=== PATIENT | female | born 1955 | race Caucasian/White ===

== ENCOUNTER → 2016-11-25 | Outpatient (CLI) | payer BC ==
[~2016-11-25] VITALS: Ht 170.2 cm; Wt 119.1 kg
[~2016-11-25] MED LIST: BUPROPRION PO; CALCIUM 1200 W/1 SGL PO; FUROSEMIDE40 MG PO; GLUCOPHAGE500 MG/TAB PO; KLOR-CON M2020 MEQ PO; KLOR-CON20 MEQ PO; LAMISIL250 MG PO; LASIX 40MG TABL40 MG PO; LUTEIN20 MG PO; MASON NATURAL1000 MG PO; MULTIPLE VITAMI1 TA1 PO; NORMODYNE100 MG PO; PEPCID COMPLETE1 CTB PO; PHENTERMINE15 MG PO; VITAMIN B12500 MCG PO; VITAMIN D1000 IU PO; WELLBUTRIN XL300 M1 PO
[2016-11-25 13:24] VITALS: BP 126/68; PULSE 65
[2016-11-25 15:41] VITALS: BP 126/68; PULSE 65
[2016-11-25 15:49] VITALS: BP 126/68; PULSE 65
== END ==
LOC: LIGHT 09-30 09:57
DX: I10 Essential (primary) hypertension (principal); M15.8 Other polyosteoarthritis; G47.33 Obstructive sleep apnea (adult) (pediatric); R73.01 Impaired fasting glucose; Z68.41 Body mass index [BMI] 40.0-44.9, adult

== ENCOUNTER 2017-01-26 10:25 | Outpatient (RCR) | payer OTHER | END 2017-04-22 12:05 | LOC: WSOH 10:25 | DX: S93.402A Sprain of unspecified ligament of left ankle, initial encounter (principal); W18.49XA Other slipping, tripping and stumbling without falling, initial encounter; Y99.0 Civilian activity done for income or pay ==

== ENCOUNTER → 2017-02-23 | Outpatient (CLI) | payer BC | LOC: ZCOL.LAB 16:10 | DX: J03.80 Acute tonsillitis due to other specified organisms (principal) ==

== ENCOUNTER → 2017-04-28 | Outpatient (CLI) | payer OTHER ==
[~2017-04-28] VITALS: Ht 170.2 cm; Wt 108.9 kg
[2017-04-28 13:48] VITALS: BP 116/56; PULSE 67
[2017-06-08 09:36] VITALS: BP 116/56; PULSE 67
[2017-07-06 14:16] VITALS: BP 106/60; PULSE 76
[2017-07-20 10:38] VITALS: BP 116/70; PULSE 68
[2017-08-03 11:55] VITALS: BP 108/60; PULSE 64
== END ==
LOC: LIGHT 02-24 15:27
DX: I10 Essential (primary) hypertension (principal); M15.9 Polyosteoarthritis, unspecified; G47.33 Obstructive sleep apnea (adult) (pediatric); R73.01 Impaired fasting glucose; Z68.41 Body mass index [BMI] 40.0-44.9, adult

== ENCOUNTER → 2017-10-06 | Outpatient (CLI) | payer BC ==
[~2017-10-06] VITALS: Ht 170.2 cm; Wt 106.8 kg
[2017-10-06 13:52] VITALS: BP 124/80; PULSE 64
== END ==
LOC: LIGHT 09:42
DX: I10 Essential (primary) hypertension (principal); M15.9 Polyosteoarthritis, unspecified; G47.33 Obstructive sleep apnea (adult) (pediatric); R73.01 Impaired fasting glucose; Z68.36 Body mass index [BMI] 36.0-36.9, adult; Z71.3 Dietary counseling and surveillance

== ENCOUNTER → 2017-11-09 | Outpatient (CLI) | payer BC | LOC: MC.RAD 10:16 | DX: Z12.31 Encounter for screening mammogram for malignant neoplasm of breast (principal) ==

== ENCOUNTER → 2018-02-02 | Outpatient (CLI) | payer BC ==
[~2018-02-02] VITALS: Ht 170.2 cm; Wt 108.9 kg
[2018-02-02 13:47] VITALS: BP 112/64; PULSE 76
== END ==
LOC: LIGHT 11:09
DX: I10 Essential (primary) hypertension (principal); M15.9 Polyosteoarthritis, unspecified; G47.33 Obstructive sleep apnea (adult) (pediatric); R73.01 Impaired fasting glucose; Z68.37 Body mass index [BMI] 37.0-37.9, adult; Z71.3 Dietary counseling and surveillance
CPT/HCPCS: G0463

== ENCOUNTER → 2018-03-23 | Outpatient (CLI) | payer BC ==
[~2018-03-23] VITALS: Ht 170.2 cm; Wt 111.4 kg
[2018-03-23 14:04] VITALS: BP 124/80; PULSE 72
== END ==
LOC: LIGHT 08:50
DX: I10 Essential (primary) hypertension (principal); M15.9 Polyosteoarthritis, unspecified; G47.33 Obstructive sleep apnea (adult) (pediatric); R73.01 Impaired fasting glucose; Z68.38 Body mass index [BMI] 38.0-38.9, adult; Z71.3 Dietary counseling and surveillance
CPT/HCPCS: G0463

== ENCOUNTER → 2018-08-24 | Outpatient (CLI) | payer BC ==
[~2018-08-24] VITALS: Ht 170.2 cm; Wt 105.2 kg
[~2018-08-24] MED LIST changes: +ADIPEX-P37.5 MG PO
[2018-08-24 14:04] VITALS: BP 110/70; PULSE 60
== END ==
LOC: LIGHT 06-01 16:45
DX: I10 Essential (primary) hypertension (principal); M15.9 Polyosteoarthritis, unspecified; G47.33 Obstructive sleep apnea (adult) (pediatric); R73.01 Impaired fasting glucose; E66.9 Obesity, unspecified; Z68.36 Body mass index [BMI] 36.0-36.9, adult; Z71.3 Dietary counseling and surveillance
CPT/HCPCS: G0463

== ENCOUNTER → 2019-01-04 | Outpatient (CLI) | payer BC ==
[~2019-01-04] VITALS: Ht 170.2 cm; Wt 112.5 kg
[~2019-01-04] MED LIST changes: +[UNRECOGNIZED DRUG - OTHER] PO
[2019-01-04 14:37] VITALS: BP 140/92; PULSE 64
== END ==
LOC: LIGHT 12-01 11:57
DX: I10 Essential (primary) hypertension (principal); M15.9 Polyosteoarthritis, unspecified; G47.33 Obstructive sleep apnea (adult) (pediatric); R73.01 Impaired fasting glucose; Z68.38 Body mass index [BMI] 38.0-38.9, adult; Z71.3 Dietary counseling and surveillance
CPT/HCPCS: G0463

== ENCOUNTER 2019-01-16 01:30 | Emergency (ER) | payer BC | END 2019-01-16 01:57 | disposition home or self-care (01) | LOC: COL.ER 01:30 | DX: S01.111A Laceration without foreign body of right eyelid and periocular area, initial encounter (principal); W00.0XXA Fall on same level due to ice and snow, initial encounter; Y92.009 Unspecified place in unspecified non-institutional (private) residence as the place of occurrence of the external cause ==

== ENCOUNTER 2019-01-22 07:48 | Emergency (ER) | payer BC ==
[2019-01-22 07:54] VITALS: BP 142/87; PULSE 76; TEMP 97.6
== END 2019-01-22 08:25 | disposition home or self-care (01) ==
LOC: COL.ER 07:48
DX: S01.111D Laceration without foreign body of right eyelid and periocular area, subsequent encounter (principal); X58.XXXD Exposure to other specified factors, subsequent encounter

== ENCOUNTER → 2019-02-01 | Outpatient (CLI) | payer BC ==
[~2019-02-01] VITALS: Ht 170.2 cm; Wt 112.5 kg
[~2019-02-01] MED LIST changes: -NORMODYNE100 MG PO; +NORMODYNE200 MG PO
[2019-02-01 14:58] VITALS: BP 138/92; PULSE 72
== END ==
LOC: LIGHT 10:08
DX: I10 Essential (primary) hypertension (principal); M15.9 Polyosteoarthritis, unspecified; G47.33 Obstructive sleep apnea (adult) (pediatric); R73.01 Impaired fasting glucose; Z68.38 Body mass index [BMI] 38.0-38.9, adult; Z71.3 Dietary counseling and surveillance
CPT/HCPCS: G0463

== ENCOUNTER → 2019-02-21 | Outpatient (CLI) | payer BC | LOC: MC.RAD 10:08 | DX: Z12.31 Encounter for screening mammogram for malignant neoplasm of breast (principal) ==

== ENCOUNTER → 2019-03-29 | Outpatient (CLI) | payer BC ==
[~2019-03-29] VITALS: Ht 170.2 cm; Wt 113.6 kg
[~2019-03-29] MED LIST changes: +ZESTRIL 5MG5 MG PO
[2019-03-29 16:25] VITALS: BP 118/68; PULSE 72
== END ==
LOC: LIGHT
DX: I10 Essential (primary) hypertension (principal); M15.9 Polyosteoarthritis, unspecified; R73.01 Impaired fasting glucose; G47.33 Obstructive sleep apnea (adult) (pediatric); Z68.39 Body mass index [BMI] 39.0-39.9, adult; Z71.3 Dietary counseling and surveillance
CPT/HCPCS: G0463

== ENCOUNTER → 2019-05-03 | Outpatient (CLI) | payer BC ==
[~2019-05-03] VITALS: Ht 170.2 cm; Wt 113.9 kg
[~2019-05-03] MED LIST changes: -ZESTRIL 5MG5 MG PO; +ZESTRIL2.5 MG PO
[2019-05-03 15:05] VITALS: BP 120/80; PULSE 72
== END ==
LOC: LIGHT 14:55
DX: I10 Essential (primary) hypertension (principal); M15.9 Polyosteoarthritis, unspecified; G47.33 Obstructive sleep apnea (adult) (pediatric); R73.01 Impaired fasting glucose; Z68.39 Body mass index [BMI] 39.0-39.9, adult; Z71.3 Dietary counseling and surveillance
CPT/HCPCS: G0463

== ENCOUNTER → 2019-10-04 | Outpatient (CLI) | payer BC ==
[~2019-10-04] VITALS: Ht 170.2 cm; Wt 117.3 kg
[2019-10-04 13:20] VITALS: BP 120/70; PULSE 72
== END ==
LOC: LIGHT 08-02 09:39
DX: I10 Essential (primary) hypertension (principal); M15.9 Polyosteoarthritis, unspecified; R73.01 Impaired fasting glucose; G47.33 Obstructive sleep apnea (adult) (pediatric); E66.01 Morbid (severe) obesity due to excess calories; Z68.41 Body mass index [BMI] 40.0-44.9, adult; Z71.3 Dietary counseling and surveillance
CPT/HCPCS: G0463

== ENCOUNTER → 2020-06-05 | Outpatient (CLI) | payer BC ==
[~2020-06-05] VITALS: Ht 170.2 cm; Wt 117.0 kg
[2020-06-05 13:05] VITALS: BP 120/82; PULSE 80
== END ==
LOC: LIGHT 12:55
DX: E66.01 Morbid (severe) obesity due to excess calories (principal); Z68.41 Body mass index [BMI] 40.0-44.9, adult; I10 Essential (primary) hypertension; G47.30 Sleep apnea, unspecified; R73.01 Impaired fasting glucose
CPT/HCPCS: G0463

== ENCOUNTER → 2020-08-28 | Outpatient (CLI) | payer BC ==
[~2020-08-28] VITALS: Ht 170.2 cm; Wt 117.7 kg
[2020-08-28 13:41] VITALS: BP 110/80; PULSE 80
== END ==
LOC: LIGHT 07-31 15:30
DX: E66.01 Morbid (severe) obesity due to excess calories (principal); Z68.41 Body mass index [BMI] 40.0-44.9, adult; I10 Essential (primary) hypertension; R73.01 Impaired fasting glucose
CPT/HCPCS: G0463

== ENCOUNTER → 2021-03-25 | Outpatient (CLI) | payer BC | LOC: MC.RAD 11:25 | DX: Z12.31 Encounter for screening mammogram for malignant neoplasm of breast (principal) ==